=== PATIENT | male | born 1950 | race Caucasian/White ===

== ENCOUNTER → 2016-07-25 | Outpatient (CLI) | payer OTHER ==
--- NOTE | 2016-07-25 13:27 | US ---
EXAMINATION: Abdominal aortic ultrasound HISTORY: Tobacco use COMPARISON: CT dated 08/16/2013 TECHNIQUE: Grayscale images obtained. FINDINGS/IMPRESSION: The proximal aorta measures 2.7 cm, mid aorta measures 2.47 m, the distal aorta measures 2.1 cm. The proximal iliac arteries measure between 1.4 and 1.5 cm. No aortic aneurysm ankit ntified.
== END ==
LOC: MW.US 09:16
DX: Z72.0 Tobacco use (principal)
CPT/HCPCS: 76775; 76775-26

== ENCOUNTER 2020-08-17 09:04 | Day surgery (SDC) | payer OTHER ==
[~2020-08-17 09:04] MED LIST: Lactated Ringers 1,000 ML IV SCH; Lidocaine 2% 5 ML SDV ONE; Midazolam 1 MG/ML 2 ML SDV ONE; Propofol 200 MG/20 ML SDV ONE; fentaNYL 100 MCG/2 ML SDV ONE
--- NOTE | 2020-08-17 09:39 | PCM.PREANE ---
Preanesthetic Assessment - Anesthesia/Transfusion/Family Hx Anesthesia History: Prior Anesthesia Without Reaction Other Type of Anesthesia Reaction Comment: DENIES ANY PROBLEMS WITH ANESTHESIA Family History of Anesthesia Reaction: No Transfusion History: No Prior Transfusion(s) - Physical Assessment NPO Status Date: 08/17/20 NPO Status Time: 00:01 Vital Signs: Last Vital Signs Temp 97.9 F 08/17/20 09:16 Pulse 80 08/17/20 09:16 Resp 16 08/17/20 09:16 BP 128/82 08/17/20 09:16 Pulse Ox 96 08/17/20 09:16 Height: 5 ft 10 in Weight: 220 lb ASA Class: 2 Mental Status: Alert & Oriented x3 Airway Class: Mallampati = 2 Dentition: Reports: Dentures ROM/Head Extension: Limited/Partial Lungs: Normal Respiratory Effort Cardiovascular: Regular Rhythm - Allergies Allergies/Adverse Reactions: Allergies Allergy/AdvReac Type Severity Reaction Status Date / Time No Known Allergies Allergy Verified 08/11/20 10:17 - Anesthesia Plan Pre-Op Medication Ordered: None - Acknowledgements Anesthesia Type Planned: General Anesthesia Pt an Appropriate Candidate for the Planned Anesthesia: Yes Alternatives and Risks of Anesthesia Discussed w Pt/Guardian: Yes Pt/Guardian Understands and Agrees with Anesthesia Plan: Yes Additional Comments: npo tob 1 ppd etoh daily 1-2 beers obesity bmi 32 no cv problems par no questions PreAnesthesia Questionnaire HEENT History: Reports: Other (See Below) Other HEENT History: has upper and lower dentures Cardiovascular History: Reports: High Cholesterol Respiratory History: Reports: Other (See Below) Other Respiratory History: currently has a "spot" on his left lower lobe that is "being watched" Gastrointestinal History: Reports: Colon Polyp, GERD, Hepatitis Other Gastrointestinal History: takes Aloe Vera gel tabs for GERD, unsure of type of Hepatitis Genitourinary History: Reports: Renal Calculus Musculoskeletal History: Reports: Gout Neurological History: Reports: None Psychiatric History: Reports: None Endocrine/Metabolic History: Reports: Obesity/BMI 30+ Hematologic History: Reports: None Immunologic History: Reports: None Oncologic (Cancer) History: Reports: None Dermatologic History: Reports: None - Past Surgical History Head Surgeries/Procedures: Reports: None HEENT Surgical History: Reports: Tonsillectomy Cardiovascular Surgical History: Reports: None GI Surgical History: Reports: Colonoscopy Male Surgical History: Reports: Lithotripsy (ESWL) Endocrine Surgical History: Reports: None Neurological Surgical History: Reports: None Musculoskeletal Surgical History: Reports: Other (See Below) Other Musculoskeletal Surgeries/Procedures:: tendon repair right wrist Oncologic Surgical History: Reports: None Dermatological Surgical History: Reports: None - SUBSTANCE USE Tobacco Use Status *Q: Current Every Day Tobacco User Tobacco Use Within Last Twelve Months: Cigarettes Days Per Week of Alcohol Use: 7 Number of Drinks Per Day: 1 Total Drinks Per Week: 7 Recreational Drug Use History: No - HOME MEDS Home Medications: Home Meds Aloe Vera 0 mg PO DAILY 08/11/20 [History] Multivit-Min/FA/Lycopen/Lutein [Centrum Silver Men Tablet] 1 tab PO DAILY 08/11/20 [History] Axson-3 Fatty Acids/Fish Oil [Fish Oil 1,000 mg Capsule] 1,000 mg PO QID 08/11/20 [History] atorvaSTATin Calcium [Atorvastatin Calcium] 10 mg PO DAILY 08/11/20 [History] - CURRENT (IN HOUSE) MEDS Current Meds: Current Medications Lactated Ringer's (Ringers, Lactated) 1,000 mls @ 125 mls/hr IV ASDIRECTED MARTIN Last Admin: 08/17/20 09:22 Dose: 125 mls/hr Documented by: Discontinued Medications Fentanyl (Fentanyl 100 Mcg/2 Ml Sdv) Confirm Administered Dose 100 mcg .ROUTE .STK-MED ONE Stop: 08/17/20 06:54 Lidocaine (Lidocaine 2% 5 Ml Sdv) Confirm Administered Dose 5 ml .ROUTE .STK-MED ONE Stop: 08/17/20 06:55 Midazolam HCl (Midazolam 1 Mg/Ml 2 Ml Sdv) Confirm Administered Dose 2 mg .ROUTE .STK-MED ONE Stop: 08/17/20 06:54 Propofol (Propofol 200 Mg/20 Ml Sdv) Confirm Administered Dose 200 mg .ROUTE .STK-MED ONE Stop: 08/17/20 06:54
[2020-08-17] MEDS ORDERED: Propofol 200 MG/20 ML SDV ONE (10:52)
--- NOTE | 2020-08-17 11:12 | PCM.OPNOTE ---
- General Post-Op/Procedure Note Date of Surgery/Procedure: 08/17/20 Operative Procedure(s): colonoscopy and polypectomy Findings: diverticulosis colon polyp 10 cm dictation number [id number] Pre Op Diagnosis: History of colon polyps Post-Op Diagnosis: Diverticulosis. colon polyps Primary Surgeon: Denys Stout Pathology: colon polyp Complications: None Condition: Good
--- NOTE | 2020-08-17 11:29 | PCM.POSTAN ---
POST ANESTHESIA ASSESSMENT - MENTAL STATUS Mental Status: Alert (no anesthetic problems), Oriented - VITAL SIGNS Vital Signs: Last Vital Signs Temp 97.9 F 08/17/20 09:16 Pulse 66 08/17/20 11:25 Resp 14 08/17/20 11:25 BP 130/78 08/17/20 11:25 Pulse Ox 97 08/17/20 11:25 - RESPIRATORY Respiratory Status: Respiratory Rate WNL, Airway Patent, O2 Saturation Stable - CARDIOVASCULAR CV Status: Pulse Rate WNL, Blood Pressure Stable - GASTROINTESTINAL GI Status: No Symptoms - POST OP HYDRATION Hydration Status: Adequate & Stable
--- NOTE | 2020-08-17 11:48 | PCM48HPAN ---
Post Anesthesia Note - EVALUATION WITHIN 48HRS OF ANESTHETIC Vital Signs in Normal Range: Yes Patient Participated in Evaluation: Yes Respiratory Function Stable: Yes Airway Patent: Yes Cardiovascular Function Stable: Yes Hydration Status Stable: Yes Pain Control Satisfactory: Yes Nausea and Vomiting Control Satisfactory: Yes Mental Status Recovered: Yes Vital Signs: Last Vital Signs Temp 97.5 F 08/17/20 11:30 Pulse 67 08/17/20 11:30 Resp 14 08/17/20 11:30 BP 174/87 H 08/17/20 11:30 Pulse Ox 95 08/17/20 11:30
--- NOTE | 2020-08-17 17:06 | OR ---
SURGEON: TAI TAMEZ MD DATE OF PROCEDURE: 08/17/2020 PREOPERATIVE DIAGNOSIS: History of colon polyps. POSTOPERATIVE DIAGNOSES: 1. Scant diverticulosis. 2. Two colon polyps in the rectum about 10 cm, likely hyperplastic. PROCEDURES PERFORMED: 1. Colonoscopy. 2. Cold biopsy polypectomy. PRIMARY SURGEON: Tai Tamez MD ANESTHESIA: With anesthesiologist. EXTENT OF THE COLONOSCOPY: To the cecum. BOWEL PREP: Excellent. LIMITATIONS: None. REASON FOR PROCEDURE: The patient is a pleasant 70-year-old gentleman whose last colonoscopy was in 2016. He said he had five polyps removed at that time. He denies any family history of colon cancer. He denies any blood in his stool. PROCEDURE IN DETAIL: Physical exam was performed. Major risks and benefits associated with procedure were explained in detail to the patient. The patient verbalized understanding and is in agreement of the same. The patient was connected to the appropriate monitoring devices and IV was started. EKG, pulse oximetry, blood pressure, and capnography were monitored throughout the procedure. Continuous oxygen and sedation were provided by the anesthesiologist. The patient was placed in left lateral decubitus position. Sedation began. After adequate sedation was achieved, a digital rectal exam was performed. No rectal masses or polyps were felt. Now, a well-lubricated Olympus colonoscope was inserted into the rectum and advanced under direct visualization to the level of the cecum. Cecum was identified by both visual and anatomic landmarks. Photographs were taken of the cecal cap and the terminal ileum. The scope was then slowly withdrawn in a somewhat circular fashion looking at the color, texture, anatomy, and integrity of mucosa from the cecum to the anal canal. The patient just had some very minimal liquid stool which was suctioned and irrigated out for a good look at the mucosa. The patient had some scant diverticulosis throughout the sigmoid colon. At about 15 cm, the patient did have an area with a slightly blue kailee. This looked to be potentially old tattooing. Scope was continued to be withdrawn. The patient did have two small flat polyps at 10 cm. These were removed with cold biopsy polypectomy. These were likely hyperplastic. Scope was retroflexed in the rectum, scope completely removed, and the procedure was terminated. ENDOSCOPIC DIAGNOSES: 1. Scant diverticulosis. 2. Two polyps at 10 cm, likely hyperplastic. RECOMMENDATIONS: Followup colonoscopy will depend on pathology. Most likely, another one in 5 years, sooner if he develops signs and symptoms such as change in bowel habits or blood in the stool. FIDENCIO / LORETA /[id number] MTDD
== END 2020-08-17 11:47 | disposition home or self-care (01) ==
LOC: MW.SDS 09:04
PROVIDERS: ATTEND Surgery
DX: Z12.11 Encounter for screening for malignant neoplasm of colon (principal); K62.1 Rectal polyp; K57.30 Diverticulosis of large intestine without perforation or abscess without bleeding; E78.00 Pure hypercholesterolemia, unspecified; E66.9 Obesity, unspecified; F17.210 Nicotine dependence, cigarettes, uncomplicated; Z98.890 Other specified postprocedural states; Z79.899 Other long term (current) drug therapy
CPT/HCPCS: 45380; 88305; J2250; J2704; J3010; J7120; 00812; 99100